=== PATIENT | male | born 1975 | race Caucasian/White ===

== ENCOUNTER → 2017-05-09 | Outpatient (CLI) | payer BC, OTHER | END | disposition home or self-care (01) | LOC: C.RDSM 10:54 | PROVIDERS: ATTEND Physical Medicine & Rehabilitation Sports Medicine | DX: M25.511 Pain in right shoulder (principal) ==

== ENCOUNTER 2024-10-03 15:28 | Inpatient (IN) ==
[2024-10-03 16:09] LABS: Hematocrit (blood only) 41.8 % (42.0-52.0); Hemoglobin 15.4 g/dl (14.0-18.0); Immature Granulocytes # (auto) 0.02 K/uL (0.01-0.20); Immature Granulocytes % (auto) 0.6 %; Lymphocytes # (auto) 0.59 K/uL (1.20-3.40); Lymphocytes % (auto) 16.3 %; Mean Corpuscular Hemoglobin 31.6 pg (25.0-34.0); Mean Corpuscular Hgb Conc 36.8 g/dL (32.0-36.0); Mean Corpuscular Volume 85.7 fL (80.0-100.0); Mean Platelet Volume 8.9 fL (9.4-12.4); Monocytes # (auto) 0.13 K/uL (0.11-0.59); Monocytes % (auto) 3.6 %; Neutrophils # (auto) 2.89 K/uL (1.40-6.50); Neutrophils % (auto) 79.5 %; Platelet Count 156 K/uL (130-400); RDW Coefficient of Variation 12.1 % (11.5-14.5); RDW Standard Deviation 38.3 fL (36.4-46.3); Red Blood Count 4.88 M/uL (4.70-6.10); White Blood Count 3.63 K/ul (4.8-10.8)
[2024-10-03 16:27] LABS: Anion Gap 5 (3-11); Blood Urea Nitrogen 14 mg/dl (6-23); Carbon Dioxide 26 mmol/L (21-32); Chloride 93 mmol/L (98-107); Creatinine Clr Calc Pharmacy 93.5 ml/min; Potassium 3.8 mmol/L (3.5-5.1); Sodium 124 mmol/L (136-145)
[2024-10-03 16:32] LABS: Troponin I High Sensitivity 9.8 pg/ml (0-20)
--- NOTE | 2024-10-03 16:33 | XRay Report ---
Chest radiograph, one view History: Tachycardia Comparison: October 01, 2024 Findings impression: Single AP view of the chest performed. An area of consolidation throughout the left lower lobe has increased in size. The right lung remains clear. Normal cardiomediastinal silhouette. No pneumothorax. No obvious or large pleural effusion. Electronically signed by Jose Luis Baires 10-03-2024 4:33 PM
[2024-10-03 16:38] LABS: Partial Thromboplastin Ratio 1.3; Partial Thromboplastin Time 36 Seconds (21-31); Prothrombin Time 10.6 Seconds (9.0-12.0)
[2024-10-03] MEDS ORDERED: VANCOMYCIN CONSULT ACTIVE PRN (17:06)
--- NOTE | 2024-10-03 17:10 | Emergency Department Note ---
Impression & Plan Sepsis, LLL pneumonia, Acute hyponatremia ED Provider Note NAME: WADE JONES AGE: 49 SEX: M : 1975 ARRIVES VIA: Walk-In INFORMANT: Patient ED PROVIDER(S): Wale Reagan DO CHIEF COMPLAINT: Pneumonia HPI: Patient is a 49-year-old male with no significant past medical history that presents to the ER for symptoms of not feeling well on Friday night. On Friday he started having fevers that have been persistent since then. He felt very tired and had a cough and congestion which then started after Friday. He was seen evaluated and placed on doxycycline and then switched to Augmentin and azithromycin on the at urgent care. Patient notes that sometimes he will vomit but he believes his medications are upsetting his stomach. Denies any belly pain. No pain dysuria, urgency, or frequency. Denies any tick bites. ADDITIONAL HISTORY OBTAINED: Per HPI Chronic Medical/Social Conditions Affecting Care: Per HPI PAST MEDICAL HISTORY:See Below PAST SURGICAL HISTORY:See Below FAMILY HISTORY:See Below SOCIAL HISTORY:See Below HOME MEDICATIONS:See Below ALLERGIES:See Below VITALS:See Below PHYSICAL EXAMINATION: GENERAL: Sitting up in bed, alert, well appearing, well nourished, no distress, non-toxic EYE EXAM: normal conjunctiva. OROPHARYNX: no exudate, no erythema, lips, buccal mucosa, and tongue normal and mucous membranes are moist NECK: supple, no nuchal rigidity, no adenopathy, non-tender LUNGS: Clear to auscultation. Normal chest wall mechanics HEART: no murmurs, S1 normal and S2 normal ABDOMEN: abdomen soft, non-tender, normo-active bowel sounds, no masses, no rebound or guarding. BACK: Back is symmetrical on inspection and there is no deformity, no midline tenderness, no CVA tenderness. SKIN: no rashes and no bruising UPPER EXTREMITIES: upper extremities are grossly normal. LOWER EXTREMITIES: No pitting edema. NEURO EXAM: Normal sensorium, cranial nerves II-XII grossly intact, normal speech, no gross weakness of arms, no gross weakness of legs. MEDICAL DECISION MAKING: Patient is a 49-year-old male recently diagnosed with pneumonia on antibiotics and CAP who presents ER for persistent fevers. IV was established and blood work was obtained. Labs show leukopenia at 3.6 thousand. INR was unremarkable. BMP with hyponatremia at 124. LFTs and bilirubin were unremarkable. Pro-Asael at 0.95. Lyme was negative. Anaplasmosis was negative. With the hyponatremia question if this could be legionnaires. Patient was covered with IV cefepime and IV vancomycin. For legionnaires he would need atypical coverage but had been on Doxy and then recently switched to azithromycin and took a dose today. Patient was given IV fluids. Updated bedside. Discussed with the hospitalist for further evaluation management treatment. Chest x-ray confirms worsening pneumonia. Consults/Care Managements Discussions: Per [facility] Triage Nursing notes reviewed. Limited review of prior medical records performed Vital Signs: reviewed and remarkable for febrile Differential diagnosis: Differential diagnosis includes etiologies such as sepsis, UTI, pneumonia, metabolic, electrolyte abnormalities, cardiac sources, intracerebral event, toxicologic, neurological, as well as others were entertained. ER treatment provided: See below Diagnostics interpreted by me include EKG and cardiac monitoring as listed below: -Cardiac Monitoring: An order was placed for continuous cardiac monitoring. The monitor shows a rate of 80 with sinus rhythm. -ECG: Sinus rhythm with rate 96 Normal axis No PVCs Nonspecific ST wave changes in the lateral leads -Laboratory studies:Interpreted by me as stated above in MDM and shown below. Imaging studies: Xrays: As interpreted by me: Portable AP upright 1 view chest shows worsening pneumonia in the left lower lobe CTs show: None Procedures:none Critical Care: None Past Med/Surg History Problem List (Updated 10/03/24 @ 21:58 by Wale Reagan DO) Acute hyponatremia (Acute) LLL pneumonia (Acute) Sepsis (Acute) Medical History (Updated 10/03/24 @ 21:58 by Wale Reagan DO) JOSEPHINE on CPAP Varicocele Surgical History S/P wisdom tooth extraction Family History Grandmother Diabetes Father Hypertension Family/Other Esophageal cancer Social History (Updated 10/03/24 @ 17:50 by Dorita Light PA-C) Smoking Status: Never smoker Second Hand Exposure: No; Do You Dip or Chew Tobacco: No; Tobacco Cessation Education Requested by Patient: No Hx Alcohol Use: Yes Alcohol type: beer Hx Substance Use: No Preferred Language: Vietnamese Communication Ability: Effective Therapy Teacher Required: No Beliefs That Will Affect Care: None marital status: Current Living Situation: Family current occupational status: employed 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 Other Information That Helps Us Care for You: No Feels Safe at Home: Yes Safety Concerns: Feels Safe At This Time Assistive Devices: None Allergies Allergies Allergy/AdvReac Type Severity Reaction Status Date / Time No Known Allergies Allergy Verified 09/30/24 08:17 Home Meds Home Medications Medication Instructions Recorded Confirmed loratadine 10 mg tablet 10 mg PO DAILY PRN Allergy Symptoms 10/03/24 10/03/24 multivitamin 1 tab PO QAM 10/03/24 10/03/24 Previous Rx's Medication Instructions Recorded amoxicillin 875 mg-potassium 1 tab PO BID 7 days #14 tabs 10/01/24 clavulanate 125 mg tablet azithromycin 250 mg tablet See Rx Instructions PO .COMPLEX 5 10/01/24 days #6 tabs Results & Data (ED) Vital Signs Vital Signs - 24 hr 10/03/24 15:33 10/03/24 16:38 10/03/24 16:38 Temperature 38.3 C H 38.3 C H Temperature Source Oral Oral Pulse Rate 108 H 86 Pulse Rate [Apical] 86 Pulse Rate from SpO2 Sensor Respiratory Rate 20 16 Respiratory Effort / Characteristics Non-Labored Spontaneous Respiratory Depth Shallow Respiratory Pattern Regular Blood Pressure 116/66 Blood Pressure [Right Arm] 116/78 Blood Pressure Mean 82 Blood Pressure Mean [Right Arm] 90 Pulse Oximetry 92 93 Oxygen Delivery Method Room Air Room Air Sepsis New/Unexplained Change in Mental Status No Sepsis Action Taken by Nursing Physician Notified 10/03/24 17:24 Temperature Temperature Source Pulse Rate 81 Pulse Rate [Apical] Pulse Rate from SpO2 Sensor 82 Respiratory Rate 19 Respiratory Effort / Characteristics Respiratory Depth Respiratory Pattern Blood Pressure 165/102 H Blood Pressure [Right Arm] Blood Pressure Mean 123 Blood Pressure Mean [Right Arm] Pulse Oximetry 93 Oxygen Delivery Method Sepsis New/Unexplained Change in Mental Status Sepsis Action Taken by Nursing Laboratory Data 10/03/24 15:53 10/03/24 15:53 Lab Results 10/03/24 10/03/24 10/03/24 Range/Units 15:53 17:15 17:21 WBC 3.63 L (4.8-10.8) K/ul RBC 4.88 (4.70-6.10) M/uL Hgb 15.4 (14.0-18.0) g/dl Hct 41.8 L (42.0-52.0) % MCV 85.7 (80.0-100.0) fL MCH 31.6 (25.0-34.0) pg MCHC 36.8 H (32.0-36.0) g/dL RDW Std Deviation 38.3 (36.4-46.3) fL RDW Coeff of Bradley 12.1 (11.5-14.5) % Plt Count 156 (130-400) K/uL MPV 8.9 L (9.4-12.4) fL Immature Gran % (Auto) 0.6 % Neut % (Auto) 79.5 % Lymph % (Auto) 16.3 % Quay % (Auto) 3.6 % Eos % (Auto) 0.0 % Baso % (Auto) 0.0 % Neut # (Auto) 2.89 (1.40-6.50) K/uL Lymph # (Auto) 0.59 L (1.20-3.40) K/uL Quay # (Auto) 0.13 (0.11-0.59) K/uL Eos # (Auto) 0.00 (0.00-0.50) K/uL Baso # (Auto) 0.00 (0.00-0.20) K/uL Immature Gran # (Auto) 0.02 (0.01-0.20) K/uL PT 10.6 (9.0-12.0) Seconds INR 1.0 (0.9-1.1) APTT 36 H (21-31) Seconds PTT Ratio 1.3 Sodium 124 L (136-145) mmol/L Potassium 3.8 (3.5-5.1) mmol/L Chloride 93 L (98-107) mmol/L Carbon Dioxide 26 (21-32) mmol/L Anion Gap 5 (3-11) BUN 14 (6-23) mg/dl Creatinine 1.06 (0.6-1.4) mg/dl Est Cr Clr Drug Dosing 93.5 ml/min eGFR Not Reportable BUN/Creatinine Ratio 13.2 (10-20) Glucose 126 H (70-99(Fasting)) mg/dl Osmolality 262 L (280-300) mOsm/kg Lactate 1.0 (0.4-2.0) mmol/L Calcium 8.5 L (8.6-10.3) mg/dl Total Bilirubin 0.5 (0.2-1.0) mg/dl AST 83 H (13-39) U/L ALT 45 (7-52) U/L Alkaline Phosphatase 47 (34-104) U/L Troponin I High Sens 9.8 (0-20) pg/ml Total Protein 7.1 (6.0-8.3) gm/dl Albumin 3.8 (3.4-5.0) gm/dl Globulin 3.3 (2.5-4.0) gm/dl Albumin/Globulin Ratio 1.2 (0.9-2) Procalcitonin 0.95 H (0-0.5) ng/ml Urine Osmolality 879 H (500-800) mOsm/kg Ur Random Sodium 17 mmol/L Anaplasma Smear See Comment Lyme Disease Screen Negative (Negative) Administered Medications Guaifenesin (Guaifenesin 600 Mg Tabcr) 1,200 mg PO Q12 [facility] Stop: 11/02/24 20:59 Last Admin: 10/03/24 21:12 Dose: 1,200 mg Documented By: MICHELINE Discontinued Medications Acetaminophen (Acetaminophen 325 Mg Tab) 650 mg PO NOW STA Stop: 10/03/24 17:09 Last Admin: 10/03/24 17:30 Dose: 650 mg Documented By: BELÉN Cefepime HCl (Maxipime 2000mg) 2,000 mg in 20 mls @ 5 mls/min IV NOW STA; Protocol Stop: 10/03/24 17:09 Last Admin: 10/03/24 17:30 Dose: 5 mls/min Documented By: BELÉN Vancomycin HCl 2,250 mg/ (Sodium Chloride) 545 mls @ 200 mls/hr IV NOW ONE Stop: 10/03/24 19:49 Last Infusion: 10/03/24 21:16 Dose: Infused Documented By: Admin: 10/03/24 18:14 Dose: 200 mls/hr Documented By: CARI Sodium Chloride (Nss) 1,000 mls @ 999 mls/hr IV .Q1H1M JOSE DE JESUS Stop: 10/03/24 19:15 Last Infusion: 10/03/24 19:56 Dose: Infused Documented By: Admin: 10/03/24 18:18 Dose: 999 mls/hr Documented By: Infusion: 10/03/24 18:18 Dose: Infused Documented By: Admin: 10/03/24 17:30 Dose: 999 mls/hr Documented By: BELÉN Imaging Data Radiologist's Impression: Chest X-Ray 10/03/24 15:44 Chest radiograph, one view History: Tachycardia Comparison: October 01, 2024 Findings impression: Single AP view of the chest performed. An area of consolidation throughout the left lower lobe has increased in size. The right lung remains clear. Normal cardiomediastinal silhouette. No pneumothorax. No obvious or large pleural effusion. Electronically signed by Jose Luis Baires 10-03-2024 4:33 PM Discharge Plan Visit Data Chief Complaint: Flu Like Symptoms Stated Complaint: HIGH FEVER, NAUSEA, HEADACHE ED Provider: Wale Reagan Discharge Problem: Sepsis, LLL pneumonia, Acute hyponatremia Patient Disposition: Admitted As Inpatient Condition: Fair Discharge Instructions Interventions: ED Discharge Assessment Last Done: 10/03/24 19:54 Discharge Problem: Sepsis Qualifiers: Sepsis type: sepsis due to unspecified organism Sepsis acute organ dysfunction status: unspecified Qualified Code(s): A41.9 - Sepsis, unspecified organism LLL pneumonia Qualifiers: Pneumonia type: due to unspecified organism Qualified Code(s): J18.9 - Pneumonia, unspecified organism
[2024-10-03] MEDS: SODIUM CHLORIDE 0.9% 1,000 ML IV SCH (17:30)
[2024-10-03] MEDS: CEFEPIME 2000MG 2,000 MG/20 ML SYR IV STA (17:30)
[2024-10-03] MEDS: ACETAMINOPHEN 325 MG TAB PO STA (17:30)
--- NOTE | 2024-10-03 17:52 | History & Physical Report ---
Date of Service October 03, 2024 Assessment & Plan (1) LLL pneumonia: (2) Sepsis: (3) Acute hyponatremia: (4) JOSEPHINE on CPAP: Plan This is a 49 y/o male with no significant medical history who presents to the ED with worsening symptoms of pneumonia and persistent fever. Pt was seen at urgent care for these symptoms and diagnosed with pneumonia, started on Augmentin/azithromycin on 09/30. However, he continues to have high fevers and persistent productive cough so came to the ED for evaluation. On presentation to to the ED, pt met sepsis criteria with tachycardia, persistent fever and labs showing leukopenia. Chest x-ray personally reviewed from today and compared to 10/01 x-ray - showed worsening of LLL consolidation. Pt was referred for admission for IV antibiotics, further evaluation. Initial lactate was normal. Noted to have new marked hyponatremia with sodium 124. Pt received 2L of IVF in the ED with improvement in tachycardia, BP remains stable. #LLL pneumonia #Sepsis secondary to pneumonia - Admit to med telemetry - Broaden antibiotic coverage for now - continue cefepime, vanco while work-up pending then deescalate as able - Legionella Ag (pt works as [employer]) - will continue empiric azithromycin for atypical coverage for now - Blood cultures pending - Check sputum culture, procal - Labs in AM - Scheduled guaifenesin, prn Tessalon perles for cough #Acute hyponatremia - suspect related to increased fluids with poor appetite/not eating for last several days but will evaluate for alternate etiologies - Encourage oral intake - hold additional IVF for now - Serum osmo, urine osmo, urine sodium - Trend labs - repeat BMP tonight and in AM #JOSEPHINE - CPAP per protocol ordered Pt seen and reviewed with collaborating physician, Dr. Whitmore. Plan of care discussed and as outlined above. Code status: full code DVT prophylaxis: Lovenoodalys Light PA-C History of Present Illness Chief Complaint: worsening pneumonia symptoms Primary Care Provider: Annetta Steiner DO This is a 49 y/o male with no significant medical history who presents to the ED with worsening symptoms of pneumonia and persistent fever. He reports that symptoms started six days ago on Friday night when he felt exhausted so went to bed early. On Friday, he went to work but felt off though no specific symptoms at the time, took temp that night which was 103F. He went to bed early that night and slept until 11 am next day. On Friday, he tried to push fluids and rest but still felt poorly. On , he started having chest burning and continued with fevers so he was seen in urgent care and tested for flu and strep which were negative. He reports being told that he may have Lyme disease so started on doxycycline, was ordered a chest x-ray. On Friday, he had the chest x-ray and was diagnosed with pneumonia. The doxycycline was discontinued, he started on azithromycin and ceftriaxone, which he reports he has been taking. Since starting the antibiotics, he feels like the chest congestion has loosened somewhat and he now has a cough that is intermittently productive. However, still with persistent fevers, malaise, intermittent SAMANIEGO. Cough is now constant and he is not sleeping due to symptoms. Denies significant dyspnea, runny nose. +sore throat from coughing, minimal sinus congestion. Has had some nausea and diarrhea since starting the antibiotics. Appetite is decreased, hasn't eaten much but trying to push fluids. History of JOSEPHINE for which he uses CPAP. Allergies Allergy/AdvReac Type Severity Reaction Status Date / Time No Known Allergies Allergy Verified 09/30/24 08:17 Home Medications Medication Instructions Recorded Confirmed Type amoxicillin 875 mg-potassium 1 tab PO BID 7 days #14 tabs 10/01/24 10/03/24 Rx clavulanate 125 mg tablet azithromycin 250 mg tablet See Rx Instructions PO .COMPLEX 5 10/01/24 10/03/24 Rx days #6 tabs loratadine 10 mg tablet 10 mg PO DAILY PRN Allergy Symptoms 10/03/24 10/03/24 History multivitamin 1 tab PO QAM 10/03/24 10/03/24 History Past Med/Surg History Problem List (Updated 10/03/24 @ 18:34 by Dorita Light PA-C) Acute hyponatremia LLL pneumonia Sepsis Medical History (Updated 10/03/24 @ 18:34 by Dorita Light PA-C) JOSEPHINE on CPAP Varicocele Surgical History S/P wisdom tooth extraction Family History Grandmother Diabetes Father Hypertension Family/Other Esophageal cancer Social History (Updated 10/03/24 @ 17:50 by Dorita Light PA-C) Smoking Status: Former smoker Hx Alcohol Use: Yes marital status: current occupational status: employed 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 Feels Safe at Home: Yes Assistive Devices: CPAP Review of Systems Review of Systems: All systems reviewed & are unremarkable except as noted in Subjective Physical Exam Physical Exam: Please physician note for details of the physical exam Results & Data Results & Data Vital Signs (Past 12 Hours) Vital Signs Temp Pulse Pulse Resp BP BP Pulse Ox 10/03/24 16:38 38.3 C H 86 16 116/78 93 10/03/24 16:38 86 10/03/24 15:33 38.3 C H 108 H 20 116/66 92 O2 Del Method 10/03/24 16:38 Room Air 10/03/24 16:38 10/03/24 15:33 Room Air Laboratory Results Lab Results 10/03/24 10/03/24 Range/Units 15:53 17:21 WBC 3.63 L (4.8-10.8) K/ul RBC 4.88 (4.70-6.10) M/uL Hgb 15.4 (14.0-18.0) g/dl Hct 41.8 L (42.0-52.0) % MCV 85.7 (80.0-100.0) fL MCH 31.6 (25.0-34.0) pg MCHC 36.8 H (32.0-36.0) g/dL RDW Std Deviation 38.3 (36.4-46.3) fL RDW Coeff of Bradley 12.1 (11.5-14.5) % Plt Count 156 (130-400) K/uL MPV 8.9 L (9.4-12.4) fL Immature Gran % (Auto) 0.6 % Neut % (Auto) 79.5 % Lymph % (Auto) 16.3 % Meigs % (Auto) 3.6 % Eos % (Auto) 0.0 % Baso % (Auto) 0.0 % Neut # (Auto) 2.89 (1.40-6.50) K/uL Lymph # (Auto) 0.59 L (1.20-3.40) K/uL Meigs # (Auto) 0.13 (0.11-0.59) K/uL Eos # (Auto) 0.00 (0.00-0.50) K/uL Baso # (Auto) 0.00 (0.00-0.20) K/uL Immature Gran # (Auto) 0.02 (0.01-0.20) K/uL PT 10.6 (9.0-12.0) Seconds INR 1.0 (0.9-1.1) APTT 36 H (21-31) Seconds PTT Ratio 1.3 Sodium 124 L (136-145) mmol/L Potassium 3.8 (3.5-5.1) mmol/L Chloride 93 L (98-107) mmol/L Carbon Dioxide 26 (21-32) mmol/L Anion Gap 5 (3-11) BUN 14 (6-23) mg/dl Creatinine 1.06 (0.6-1.4) mg/dl Est Cr Clr Drug Dosing 93.5 ml/min Lactate 1.0 (0.4-2.0) mmol/L Troponin I High Sens 9.8 (0-20) pg/ml Lyme Disease Screen Negative (Negative) Diagnostic Findings Chest X-Ray 10/03/24 15:44 Chest radiograph, one view History: Tachycardia Comparison: October 01, 2024 Findings impression: Single AP view of the chest performed. An area of consolidation throughout the left lower lobe has increased in size. The right lung remains clear. Normal cardiomediastinal silhouette. No pneumothorax. No obvious or large pleural effusion. Electronically signed by Jose Luis Baires 10-03-2024 4:33 PM Medications Administered Sodium Chloride (Nss) 1,000 mls @ 999 mls/hr IV .Q1H1M JOSE DE JESUS Stop: 10/03/24 19:15 Last Admin: 10/03/24 17:30 Dose: 999 mls/hr Documented By: BELÉN Discontinued Medications Acetaminophen (Acetaminophen 325 Mg Tab) 650 mg PO NOW STA Stop: 10/03/24 17:09 Last Admin: 10/03/24 17:30 Dose: 650 mg Documented By: BELÉN Cefepime HCl (Maxipime 2000mg) 2,000 mg in 20 mls @ 5 mls/min IV NOW STA; Protocol Stop: 10/03/24 17:09 Last Admin: 10/03/24 17:30 Dose: 5 mls/min Documented By: BELÉN Supervising Physician Co-Signing Physician Notes Presents with feeling ill since 6 days ago and fever for the past 5 days. 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 On exam, General: Not in distress Eyes: PERRL, conjunctivae normal, not pale, anicteric sclerae, EOM intact bilaterally ENMT: External ear and nose normal, oropharynx normal Respiratory: Normal respiratory effort, no respiratory distress, +cough, CTA b/l Cardiovascular: RRR S1 S2 Gastrointestinal (Abdomen): Abdomen is not distended, soft, non-tender to palpation, no guarding, no palpable hepatosplenomegaly, normal bowel sounds Musculoskeletal: No pedal edema Neurologic: Alert and oriented x 3, No focal weakness, sensation grossly intact Psychiatric: Euthymic affect Labs notable for WBC 3.63, Na 124 CXR noted left lower lobe pneumonia Met SIRS criteria with leukopenia and fever of 38.3 in ER Hence Sepsis due to Pneumonia Lactate is normal Get Procal Considering persistent symptoms while on antibiotics outpatient, will continue vanc and cefepime for now Add zithromax for atypical coverage Check legionella and sputum cx Check COVID test. Recent flu and strep from 09/30/24 were negative Follow up infectious workup and deescalate as appropriate Other plans as detailed by Nubia Light PA-C I spent a total of 35 minutes coordinating, documenting and providing care for this patient excluding time spent in performance of separately billed services (1) LLL pneumonia Pneumonia type: due to unspecified organism Qualified Code(s): J18.9 - Pneumonia, unspecified organism (2) Sepsis Sepsis acute organ dysfunction status: without acute organ dysfunction Sepsis type: sepsis due to unspecified organism Qualified Code(s): A41.9 - Sepsis, unspecified organism
[2024-10-03] MEDS: VANCOMYCIN HCL 2,250 MG in SODIUM CHLORIDE 0.9% 500 ML IV ONE (18:14)
[2024-10-03 19:20] LABS: Alanine Aminotransferase 45 U/L (7-52); Albumin Globulin Ratio 1.2 (0.9-2); Albumin Level 3.8 gm/dl (3.4-5.0); Alkaline Phosphatase 47 U/L (34-104); Aspartate Aminotransferase 83 U/L (13-39); BUN Creatinine Ratio 13.2 (10-20); Bilirubin,Total 0.5 mg/dl (0.2-1.0); Calcium 8.5 mg/dl (8.6-10.3); Globulin 3.3 gm/dl (2.5-4.0); Glucose 126 mg/dl (70-99(Fasting)); Total Protein 7.1 gm/dl (6.0-8.3)
[2024-10-03] MEDS ORDERED: ONDANSETRON INJ 2 MG/ML 2 ML VIAL IV PRN (20:58)
[2024-10-03] MEDS: guaiFENesin 600 MG TABCR PO SCH (21:12)
[2024-10-03 23:13] LABS: BUN Creatinine Ratio 13.8 (10-20); Calcium 7.5 mg/dl (8.6-10.3); Potassium 3.7 mmol/L (3.5-5.1)
[2024-10-04] MEDS: CEFEPIME 2000MG 2,000 MG/20 ML SYR IV SCH (00:32)
[2024-10-04] MEDS: BENZONATATE 100 MG CAPSULE PO PRN (00:34)
[2024-10-04] MEDS: HYDROcodone/HOMATROPINE SYRUP 5MG/1.5MG 5ML UDP PO PRN (01:20)
[2024-10-04] MEDS: ACETAMINOPHEN 325 MG TAB PO PRN (02:58)
[2024-10-04] MEDS: KETOROLAC TROMETHAMINE 15 MG/ML VIAL IV ONE (04:19)
[2024-10-04] MEDS: VANCOMYCIN HCL 1,250 MG in SODIUM CHLORIDE 0.9% 250 ML IV SCH (05:35)
[2024-10-04 06:28] LABS: Hematocrit (blood only) 36.7 % (42.0-52.0); Hemoglobin 13.3 g/dl (14.0-18.0); Mean Corpuscular Hemoglobin 31.4 pg (25.0-34.0); Mean Corpuscular Hgb Conc 36.2 g/dL (32.0-36.0); Mean Corpuscular Volume 86.6 fL (80.0-100.0); Mean Platelet Volume 8.8 fL (9.4-12.4); Platelet Count 152 K/uL (130-400); RDW Coefficient of Variation 12.3 % (11.5-14.5); RDW Standard Deviation 39.1 fL (36.4-46.3); Red Blood Count 4.24 M/uL (4.70-6.10)
[2024-10-04 06:52] LABS: Calcium 7.7 mg/dl (8.6-10.3); Creatinine Clr Calc Pharmacy 122.4 ml/min; Potassium 3.5 mmol/L (3.5-5.1)
[2024-10-04 07:21] LABS: Immature Granulocytes # (auto) 0.01 K/uL (0.01-0.20); Immature Granulocytes % (auto) 0.3 %; Lymphocytes # (auto) 0.92 K/uL (1.20-3.40); Lymphocytes % (auto) 26.3 %; Monocytes # (auto) 0.16 K/uL (0.11-0.59); Monocytes % (auto) 4.6 %; Neutrophils # (auto) 2.41 K/uL (1.40-6.50); Neutrophils % (auto) 68.8 %
[2024-10-04] MEDS: SODIUM CHLORIDE 0.9% 500 ML IV ONE (07:47)
[2024-10-04] MEDS: AZITHROMYCIN 500 MG/255 ML BAG IV SCH (07:48)
[2024-10-04] MEDS: ENOXAPARIN INJ 40 MG/0.4 ML SYR SQ SCH (07:49)
[2024-10-04] MEDS: SODIUM CHLORIDE 0.9% 1,000 ML IV SCH (07:54)
[2024-10-04] MEDS: OPTIRAY 320 100ml IV ONE (09:06)
--- NOTE | 2024-10-04 10:12 | CT Scan Report ---
CHEST CT WITH CONTRAST CT DOSE: 788. mGy.cm HISTORY: Acute shortness of breath r/o empyema, refractory pneumonia TECHNIQUE: Multiaxial CT images of the chest were performed following the IV administration of 94 cc of Optiray. A dose lowering technique was utilized adhering to the principles of ALARA. COMPARISON: Chest radiograph 10/03/2024 FINDINGS: Unremarkable thyroid. 11 mm left hilar lymph node. Mild subcarinal lymphadenopathy. Heart i s upper limits of normal in size. No thoracic aortic aneurysm. Unremarkable pulmonary artery. Trace r ight and small to moderate left pleural effusions. The left pleural effusion is multiloculated. No si gnificant left-sided pleural thickening is identified. There is segmental consolidative opacities not ed throughout the majority of the left lower lobe with air bronchograms and left basilar mucous plugg ing. Mild dependent subsegmental right basilar atelectasis. Central airways appear patent. Nonspecific asymmetric left-sided perinephric stranding. Unremarkable soft tissues. No acute fracture . IMPRESSION: 1. Severe left lower lobe pneumonia with left basilar mucous plugging. 2. [id number] multiloculated left parapneumonic effusion. No definite associated pleural thick ening or discrete empyema identified at this time. 3. Likely reactive hilar and mediastinal lymphadenopathy. 4. Trace right pleural effusion. ACT 112: Negative or not required by law. Electronically signed by: Allen Noguera M.D. 10/04/2024 10:11 AM
[2024-10-04] MEDS: cefTRIAXone SODIUM 2,000 MG/50 ML BAG IV SCH (10:53)
--- NOTE | 2024-10-04 11:02 | Hospitalist Progress Note ---
Date of Service October 04, 2024 Assessment & Plan (1) LLL pneumonia: (2) Sepsis: (3) Acute hyponatremia: (4) JOSEPHINE on CPAP: Plan This is a 49 y/o male with no significant medical history who presents to the ED with worsening symptoms of pneumonia and persistent fever. Pt was seen at urgent care for these symptoms and diagnosed with pneumonia, started on Augmentin/azithromycin on 09/30. However, he continues to have high fevers and persistent productive cough so came to the ED for evaluation. On presentation to to the ED, pt met sepsis criteria with tachycardia, persistent fever and labs showing leukopenia. Chest x-ray personally reviewed from today and compared to 10/01 x-ray - showed worsening of LLL consolidation. Pt was referred for admission for IV antibiotics, further evaluation. Initial lactate was normal. Noted to have new marked hyponatremia with sodium 124. Pt received 2L of IVF in the ED with improvement in tachycardia, BP remains stable. #LLL CAP #Multiloculated Parapneumonic Effusion #Sepsis secondary to pneumonia - Admit to med telemetry - no pseudomonas/MRSA risk factors, descalate to ceftriaxone/azithromycin - CT chest ordered and personally reviewed by this provider shows mild to moderate multiloculated effusion, likely reason for lack of improvement - pulmonary consulted for consideration of thoracentesis and pigtail placement if indicated, appreciate recs - Legionella Ag (pt works as [employer]) - will continue empiric azithromycin for atypical coverage for now - f/ blood cultures, sputum culture - Scheduled guaifenesin, prn Tessalon perles for cough - start incentive spirometer, flutter valve for aggressive bronchopulmonary hygiene #Hypovolemic Hypoosmolar Hyponatremia - Encourage oral intake - give 500cc NS bolus, maintenance with NS for 12 hours #JOSEPHINE - CPAP per protocol ordered I spent a total of 55 minutes in direct patient care, including [id number] time with the patient and/or family, reviewing medical records, ordering and reviewing diagnostic tests, and coordinating care with other healthcare providers. This time includes: history taking, physical examination, medical decision making, counseling, ECG interpretation, imaging interpretation, lab interpretation, orders, and education, excluding time spent in the performance of separately billed services. Admission and Anticipated Discharge Date Admission Date: October 03, 2024 Subjective Patient seen and examined at bedside. Patient doing ok this morning. He states he was still having fevers at home and thats why he came in. Of note, was treated with appropriate abx therapy for 3 days before coming to hospital. Having chills at home as well. Never had this happen to him before. Review of Systems Review of Systems: CONSTITUTIONAL: fatigue EYES: Patient denies any visual symptoms. EARS, NOSE, AND THROAT: No difficulties with hearing. No symptoms of rhinitis or sore throat. CARDIOVASCULAR: Patient denies chest pains, palpitations, orthopnea and paroxysmal nocturnal dyspnea. RESPIRATORY: SOB, cough GI: No nausea, vomiting, diarrhea, constipation, abdominal pain, hematochezia or melena. : No urinary hesitancy or dribbling. No nocturia or urinary frequency. No abnormal urethral discharge. MUSCULOSKELETAL: No myalgias or arthralgias. NEUROLOGIC: No chronic headaches, no seizures. Patient denies numbness, tingling or weakness. PSYCHIATRIC: Patient denies problems with mood disturbance. No problems with anxiety. ENDOCRINE: No excessive urination or excessive thirst. DERMATOLOGIC: Patient denies any rashes or skin changes. Physical Exam Physical Exam: Gen: A&O 3 NAD HEENT: NCAT, EOMI, not icteric. External ears normal. No rhinorrhea. Moist mucous membranes. Neck: Supple, full range of motion, no observable masses, No meningeal sign. Lungs: left lower lobe rhonchi noted CV: RRR, no edema. Abdomen: Soft, nondistended, No rebound tenderness. MSK: No joint swelling, no redness. Skin: No rashes, petechiae, lesions. Normal color per patient. Neuro: Normal Gait, Grossly intact. Psych: Appropriate for situation. Results & Data Results & Data Vital Signs (Past 12 Hours) Vital Signs Temp Pulse Pulse Pulse Resp BP Pulse Ox 10/04/24 08:16 10/04/24 07:39 63 10/04/24 07:20 36.9 C 72 18 112/75 90 10/04/24 05:40 37.1 C 10/04/24 03:56 38.5 C H 10/04/24 02:48 38.8 C H 83 18 116/76 91 O2 Del Method 10/04/24 08:16 Room Air 10/04/24 07:39 10/04/24 07:20 Room Air 10/04/24 05:40 10/04/24 03:56 05/12/25 02:48 Room Air Laboratory Results -personally reviewed, Na 126 in setting of low serum osmoles 2/2 dehydration, procal of 0.95 suggestive of bacterial infection and sepsis Medications Administered Acetaminophen (Acetaminophen 325 Mg Tab) 650 mg PO Q4H PRN PRN Reason: Pain or Fever Stop: 11/02/24 20:57 Last Admin: 10/04/24 02:58 Dose: 650 mg Documented By: MICHELINE Benzonatate (Benzonatate 100 Mg Capsule) 100 mg PO TID PRN PRN Reason: Cough Stop: 11/02/24 20:57 Last Admin: 10/04/24 00:34 Dose: 100 mg Documented By: MICHELINE Enoxaparin Sodium (Enoxaparin Inj 40 Mg/0.4 Ml Syr) 40 mg SQ QAM [facility] Stop: 11/03/24 08:59 Last Admin: 10/04/24 07:49 Dose: 40 mg Documented By: JACEY Guaifenesin (Guaifenesin 600 Mg Tabcr) 1,200 mg PO Q12 [facility] Stop: 11/02/24 20:59 Last Admin: 10/04/24 07:48 Dose: 1,200 mg Documented By: Admin: 10/03/24 21:12 Dose: 1,200 mg Documented By: MICHELINE Azithromycin (Zithromax) 500 mg in 255 mls @ 127.5 mls/hr IV Q24H [facility] Stop: 10/09/24 07:59 Last Infusion: 10/04/24 09:55 Dose: Infused Documented By: Admin: 10/04/24 07:48 Dose: 127.5 mls/hr Documented By: JACEY Sodium Chloride (Nss) 1,000 mls @ 80 mls/hr IV .[id number] [facility] Stop: 10/07/24 07:44 Last Admin: 10/04/24 07:54 Dose: 80 mls/hr Documented By: JACEY Ceftriaxone Sodium (Rocephin) 2,000 mg in 50 mls @ 100 mls/hr IV Q24H [facility] Stop: 10/09/24 10:44 Last Admin: 10/04/24 10:53 Dose: 100 mls/hr Documented By: JACEY (1) LLL pneumonia Pneumonia type: due to unspecified organism Qualified Code(s): J18.9 - Pneumonia, unspecified organism (2) Sepsis Sepsis type: sepsis due to unspecified organism Sepsis acute organ dysfunction status: unspecified Qualified Code(s): A41.9 - Sepsis, unspecified organism
--- NOTE | 2024-10-04 11:21 | Pulmonary Consultation ---
Date of Consultation October 04, 2024 Assessment & Plan (1) LLL pneumonia: Pneumonia type: due to unspecified organism Qualified Code(s): J 18.9 - Pneumonia, unspecified organism (2) Cough: (3) Pleural effusion associated with pulmonary infection: Plan Community Acquired pneumonia; Cough -Continue with azithromycin day 1 of 5 day course -Continue ceftriaxone day of 5 day course. Consider switching to oral ABX if appropriate. -Chest x-ray on 10/05/2024 for evaluation of LLL consolidation. -Start Tessilon pearls and guafenesin w/ codeine PRN for cough. -Maintain SpO2 > 92%. Patient currently on room air. Left pleural effusion possible parapneumonic in setting of CAP -Continue to treat community acquired pneumonia with azithromycin and Ceftriaxone -Will hold off on diagnostic thoracentesis or chest tube placement as effusion is small to moderate and patient no exhibiting pain out of proportion to radiographic findings. -Repeat Chest x-ray on 10/05/2024. -Pulmonary to continue to follow. Supervising Physician Co-Signing Physician Notes Patient seen and examined. EMR reviewed. Images independently reviewed. The patient is awake alert and conversant. He is not on oxygen. He was febrile earlier today. Lungs with decreased breath sounds at the left lung base. CT reviewed with trivial pleural effusion identified. No clear pocket for thoracentesis or chest tube placement. Agree with antibiotics in the form of Rocephin and azithromycin. Can likely transition to oral antibiotics in the next 24 hours depending on clinical response. Will need 5 to 7 days of total therapy. Will repeat chest x-ray in a.m. to ensure the pleural effusion is not increasing in size. If so, consideration for sampling of the pleural fluid/pleural drainage may be appropriate. The above recommendations and plan were discussed with the patient as well as with his family at bedside. Questions were answered to the best my ability. They expressed understanding and are in agreement with the plan as outlined. History of Present Illness Reason for Consultation: Left parapneumonic pleural effusion in setting of community acquired pneumonia Attending Physician: Pawel Hendrix MD History of Present Illness Davi Meyer is a 49-year-old male with past medical history of obstructive sleep apnea on CPAP qhs; who presented to [facility] ED on 10/03/2024 with persistent fevers, cough, and chest tightness. Symptoms initially started with fevers, lethargy and malaise on 09/24/2024. Patient sought care at urgent care on 09/30/2024 and was started on doxycycline for persumed lyme disease with plan for a follow up chest x-ray. The patient had his chest x-ray completed on 10/01/2024 and there was a significant left lower lobe consolidation for which urgent care changed antibiotics to azithromycin and Augmentin. Unfortunately his fevers, cough, and chest tighness persisted causing him to come to [facility] ED on 10/03/2024. CT chest on 10/03/2024 which showed left lower lobe consolidation representing pneumonia with small to moderate left pleural effusion concerning for parapneumonic effusion. Pulmonary consulted on 10/04/24 for recommendations and management. Allergies Allergy/AdvReac Type Severity Reaction Status Date / Time No Known Allergies Allergy Verified 09/30/24 08:17 Home Medications Medication Instructions Recorded Confirmed Type amoxicillin 875 mg-potassium 1 tab PO BID 7 days #14 tabs 10/01/24 10/03/24 Rx clavulanate 125 mg tablet azithromycin 250 mg tablet See Rx Instructions PO .COMPLEX 5 10/01/24 10/03/24 Rx days #6 tabs loratadine 10 mg tablet 10 mg PO DAILY PRN Allergy Symptoms 10/03/24 10/03/24 History multivitamin 1 tab PO QAM 10/03/24 10/03/24 History Patient History Medical History (Updated 10/04/24 @ 12:36 by DI Ambrose) JOSEPHINE on CPAP Varicocele Surgical History S/P wisdom tooth extraction Family History Grandmother Diabetes Father Hypertension Family/Other Esophageal cancer Social History (Updated 10/03/24 @ 17:50 by Dorita Light PA-C) Smoking Status: Never smoker Second Hand Exposure: No; Do You Dip or Chew Tobacco: No; Tobacco Cessation Education Requested by Patient: No Hx Alcohol Use: Yes Alcohol type: beer Hx Substance Use: No Preferred Language: Maltese Communication Ability: Effective Transportation Associate Required: No Beliefs That Will Affect Care: None marital status: Current Living Situation: Family current occupational status: employed 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 Other Information That Helps Us Care for You: No Feels Safe at Home: Yes Safety Concerns: Feels Safe At This Time Assistive Devices: None Review of Systems 2 Review of Systems: Constitutional: + fatigue,+ malaise, endorses waking up sweating ENT/Mouth: No Ear Pain, No Nasal Congestion, No Sinus Pain, No Hoarseness, No sore throat, No Rhinorrhea, No Swallowing Cardiovascular: No Chest Pain, No SOB, No PND, No Dyspnea on Exertion, No Orthopnea, No Claudication, No Edema, No Palpitations Respiratory: + Cough worse at night, No Sputum, No Wheezing, No Smoke Exposure, No Dyspnea Gastrointestinal: + Nausea, No Vomiting, No Diarrhea, No Constipation, No Pain, No Heartburn, No Anorexia, No Dysphagia, No Hematochezia, No Melena, No Flatulence, No Jaundice Physical Exam 2 Physical Exam: VITALS: Reviewed. WEIGHT/BMI reviewed. GEN: Healthy appearing, well-developed, NAD. PSYCH: Good Judgment. AOx3. Normal memory, mood, and affect. Patient states his mind feels foggy. Mouth and throat: MMM. Normal gums, mucosa, palate,. Good dentition. NECK: Supple, with no masses. CV: RRR, no m/r/g. LUNGS: Clear in bilateral upper lobes, crackles appreciated over left lower lobe, clear right lower lobe, Chest rise symmetrical, breathing nonlabored. Sating 92% on room air. ABD: Soft, NT/ND, NBS, no masses or organomegaly. SKIN: Warm, well perfused. No skin rashes or abnormal lesions. MSK: No deformities. EXT: No clubbing, cyanosis, or edema. NEURO: Normal muscle strength and tone. No focal deficits. Results & Data Results & Data Vital Signs (Past 12 Hours) Vital Signs Temp Pulse Pulse Pulse Resp BP Pulse Ox 10/04/24 08:16 10/04/24 07:39 63 10/04/24 07:20 36.9 C 72 18 112/75 90 10/04/24 05:40 37.1 C 10/04/24 03:56 38.5 C H 10/04/24 02:48 38.8 C H 83 18 116/76 91 O2 Del Method 10/04/24 08:16 Room Air 10/04/24 07:39 10/04/24 07:20 Room Air 10/04/24 05:40 10/04/24 03:56 10/04/24 02:48 Room Air Laboratory Results 10/04/24 05:54 10/04/24 05:54 Abnormal Lab Results 10/03/24 10/03/24 10/03/24 15:53 17:15 17:21 WBC 3.63 L RBC 4.88 Hgb 15.4 Hct 41.8 L MCV 85.7 MCH 31.6 MCHC 36.8 H RDW Std Deviation 38.3 RDW Coeff of Bradley 12.1 Plt Count 156 MPV 8.9 L Immature Gran % (Auto) 0.6 Neut % (Auto) 79.5 Lymph % (Auto) 16.3 Bay % (Auto) 3.6 Eos % (Auto) 0.0 Baso % (Auto) 0.0 Neut # (Auto) 2.89 Lymph # (Auto) 0.59 L Bay # (Auto) 0.13 Eos # (Auto) 0.00 Baso # (Auto) 0.00 Immature Gran # (Auto) 0.02 PT 10.6 INR 1.0 APTT 36 H PTT Ratio 1.3 Sodium 124 L Potassium 3.8 Chloride 93 L Carbon Dioxide 26 Anion Gap 5 BUN 14 Creatinine 1.06 Est Cr Clr Drug Dosing 93.5 eGFR Not Reportable BUN/Creatinine Ratio 13.2 Glucose 126 H Osmolality 262 L Lactate 1.0 Calcium 8.5 L Total Bilirubin 0.5 AST 83 H ALT 45 Alkaline Phosphatase 47 Troponin I High Sens 9.8 Total Protein 7.1 Albumin 3.8 Globulin 3.3 Albumin/Globulin Ratio 1.2 Procalcitonin 0.95 H Urine Osmolality 879 H Ur Random Sodium 17 Nasal Screen MRSA (PCR) Anaplasma Smear See Comment Lyme Disease Screen Negative SARS-CoV-2 (PCR) 10/03/24 10/03/24 10/04/24 18:21 22:36 05:54 WBC 3.50 L RBC 4.24 L Hgb 13.3 L Hct 36.7 L MCV 86.6 MCH 31.4 MCHC 36.2 H RDW Std Deviation 39.1 RDW Coeff of Bradley 12.3 Plt Count 152 MPV 8.8 L Immature Gran % (Auto) 0.3 Neut % (Auto) 68.8 Lymph % (Auto) 26.3 Bay % (Auto) 4.6 Eos % (Auto) 0.0 Baso % (Auto) 0.0 Neut # (Auto) 2.41 Lymph # (Auto) 0.92 L Bay # (Auto) 0.16 Eos # (Auto) 0.00 Baso # (Auto) 0.00 Immature Gran # (Auto) 0.01 PT INR APTT PTT Ratio Sodium 127 L 126 L Potassium 3.7 3.5 Chloride 99 98 Carbon Dioxide 23 23 Anion Gap 5 5 BUN 12 13 Creatinine 0.87 0.81 Est Cr Clr Drug Dosing 114.0 122.4 eGFR 106.44 108.76 BUN/Creatinine Ratio 13.8 16.0 Glucose 111 H 109 H Osmolality Lactate Calcium 7.5 L 7.7 L Total Bilirubin AST ALT Alkaline Phosphatase Troponin I High Sens Total Protein Albumin Globulin Albumin/Globulin Ratio Procalcitonin Urine Osmolality Ur Random Sodium Nasal Screen MRSA (PCR) Anaplasma Smear Lyme Disease Screen SARS-CoV-2 (PCR) NEGATIVE 10/04/24 Unknown WBC RBC Hgb Hct MCV MCH MCHC RDW Std Deviation RDW Coeff of Bradley Plt Count MPV Immature Gran % (Auto) Neut % (Auto) Lymph % (Auto) Bay % (Auto) Eos % (Auto) Baso % (Auto) Neut # (Auto) Lymph # (Auto) Bay # (Auto) Eos # (Auto) Baso # (Auto) Immature Gran # (Auto) PT INR APTT PTT Ratio Sodium Potassium Chloride Carbon Dioxide Anion Gap BUN Creatinine Est Cr Clr Drug Dosing eGFR BUN/Creatinine Ratio Glucose Osmolality Lactate Calcium Total Bilirubin AST ALT Alkaline Phosphatase Troponin I High Sens Total Protein Albumin Globulin Albumin/Globulin Ratio Procalcitonin Urine Osmolality Ur Random Sodium Nasal Screen MRSA (PCR) Negative Anaplasma Smear Lyme Disease Screen SARS-CoV-2 (PCR) Diagnostic Findings Chest CT 10/04/24 07:39 IMPRESSION: 1. Severe left lower lobe pneumonia with left basilar mucous plugging. 2. [id number] multiloculated left parapneumonic effusion. No definite associated pleural thickening or discrete empyema identified at this time. 3. Likely reactive hilar and mediastinal lymphadenopathy. 4. Trace right pleural effusion. Chest X-ray 10/03/2024 @ 1544 Impression: An area of consolidation throughout the left lower lobe has increased in size. Chest X-ray 10/01/2024 @ 0812 Impression: Left lower lobe pneumonia. Follow-up to complete resolution recommended. Electronically signed by: Allen Noguera M.D. 10/04/2024 10:11 AM PG Care Time/CCT Total # of Minutes Spent Total Time Spent with Patient: Total time spent is greater than 50% in coordination of care (as documented) at patient's floor/unit and/or counseling patient: Coding Level of Care Code 27154 IN/OBS CONSULT LVL 3,45M Diagnoses Pneumonia of left lower lobe due to infectious organism J18.9 Pneumonia type: due to unspecified organism Cough R05.9 Pleural effusion associated with pulmonary infection J18.9; J91.8 Time Spent (min) 40
[2024-10-04 11:28] LABS: Total Protein 5.8 gm/dl (6.0-8.3)
[2024-10-04] MEDS ORDERED: guaiFENesin/CODEINE 100MG/10MG 5ML UDC PO PRN (12:29)
--- NOTE | 2024-10-04 12:37 | Electrocardiogram Report ---
Test Reason : Blood Pressure : */* mmHG Vent. Rate : 96 BPM Atrial Rate : 96 BPM P-R Int : 132 ms QRS Dur : 86 ms QT Int : 332 ms P-R-T Axes : 22 17 15 degrees QTcB Int : 419 ms Normal sinus rhythm Nonspecific ST and T wave abnormality Abnormal ECG No previous ECGs available Confirmed by Miguel Maloney ([id number]) on 10/04/2024 12:37:27 PM Referred By: REFERRED SELF Confirmed By: Miguel Maloney
[2024-10-04 15:00] VITALS: RESP 18
[2024-10-04] MEDS ORDERED: ACETAMINOPHEN 500 MG TAB PO PRN (16:03)
[2024-10-04] MEDS: guaiFENesin 600 MG TABCR PO SCH (20:14)
[2024-10-04] MEDS: traMADol HCL 50 MG TABLET PO PRN (20:47)
[2024-10-05 06:07] LABS: Hematocrit (blood only) 35.8 % (42.0-52.0); Mean Corpuscular Hemoglobin 31.3 pg (25.0-34.0); Mean Corpuscular Hgb Conc 36.3 g/dL (32.0-36.0); Mean Corpuscular Volume 86.1 fL (80.0-100.0); Mean Platelet Volume 9.1 fL (9.4-12.4); Platelet Count 202 K/uL (130-400); RDW Coefficient of Variation 12.3 % (11.5-14.5); RDW Standard Deviation 39.2 fL (36.4-46.3); Red Blood Count 4.16 M/uL (4.70-6.10); White Blood Count 3.64 K/ul (4.8-10.8)
[2024-10-05 06:26] LABS: BUN Creatinine Ratio 13.2 (10-20); Calcium 7.9 mg/dl (8.6-10.3); Creatinine Clr Calc Pharmacy 145.8 ml/min; Potassium 3.7 mmol/L (3.5-5.1)
[2024-10-05 06:30] LABS: Immature Granulocytes # (auto) 0.01 K/uL (0.01-0.20); Immature Granulocytes % (auto) 0.3 %; Lymphocytes # (auto) 0.89 K/uL (1.20-3.40); Lymphocytes % (auto) 24.5 %; Monocytes # (auto) 0.27 K/uL (0.11-0.59); Monocytes % (auto) 7.4 %; Neutrophils # (auto) 2.47 K/uL (1.40-6.50); Neutrophils % (auto) 67.8 %; RBC Morphology Unremarkable
--- NOTE | 2024-10-05 07:34 | XRay Report ---
EXAM: XR chest 1V portable CLINICAL HISTORY: Evaluate LLL pneumonia. TECHNIQUE: An X-ray image of the chest is obtained in AP projection. COMPARISON: 10/03/2024. FINDINGS: Pulmonary Parenchyma: Homogeneous opacification of left lower zone with blunting of the left costophrenic recess. An atelectatic band traversing in the right lower zone. Heart and Mediastinum: Heart size and shape are normal. No mediastinal widening or masses. No hilar or mediastinal lymphadenopathy. Bony Thorax: Bony thorax appears intact without fractures or deformities. Soft Tissues: Soft tissues overlying the chest wall are unremarkable. IMPRESSION: 1. Interval stable, homogeneous opacification of left lower zone with blunting of left costophrenic recess. Postinflammatory consolidative shadowing with mild pleural effusion. Clinical and lab correlation is advised. 2. Interval new, small atelectatic band traversing in the right lower zone.Comparing the previous x-ray dated 10/03/2024, interval stable left lower lobe consolidative shadowing and interval new, atelectatic bands right lower zone. Electronically signed by Codey Chavez 10-05-2024 07:34 AM
[2024-10-05] MEDS ORDERED: oxyCODONE HCL IR 5 MG TAB (IMMEDIATE RELEASE) PO PRN (07:43)
--- NOTE | 2024-10-05 07:51 | Pulmonology Progress Note ---
Date of Service October 05, 2024 Assessment & Plan (1) LLL pneumonia: Pneumonia type: due to unspecified organism Qualified Code(s): J 18.9 - Pneumonia, unspecified organism (2) JOSEPHINE on CPAP: (3) Pleural effusion associated with pulmonary infection: (4) Cough: Cough type: acute Qualified Code(s): R05.1 - Acute cough Plan Community Acquired pneumonia; Acute Cough related to LLL pneumonia. -Continue with azithromycin day 2 of 5 day course -Continue ceftriaxone day of 5-7 day course. Consider switching to oral ABX and discharging if appropriate. -Chest x-ray on 10/05/2024 stable left lower lobe consolidation. -Start Tessilon pearls and guafenesin w/ codeine PRN for cough. -Maintain SpO2 > 92%. Patient currently on room air. Left pleural effusion possible parapneumonic in setting of CAP -Continue to treat community acquired pneumonia with azithromycin and Ceftriaxone -Will hold off on diagnostic thoracentesis or chest tube placement as effusion is small on POC ultrasound -Repeat Chest x-ray on 10/05/2024 showed stable left lower lobe consolidation. -Plan for outpatient follow up on 10/07/2024 with chest x-ray to evaluate LLL effusion and patient's clinical trajectory. -Pulmonary to continue to follow. Admission and Anticipated Discharge Date Admission Date: October 03, 2024 Supervising Physician Co-Signing Physician Notes Patient seen and examined. EMR reviewed. Images were independently reviewed. Discussed with LAURA and agree with assessment plan as noted. Patient feels well. On exam he has decreased breath sounds at the left lung base. Limited thoracic ultrasound was performed at the bedside which revealed a very small fluid collection in the left hemithorax without significant effusion on the right. The fluid collection is too small to consider sampling currently. The patient is clinically improved. Okay to transition to oral antibiotics in the form of Ceftin and azithromycin and would complete antibiotics for 5 to 7 days. He can follow-up in the pulmonary clinic with a PA and lateral chest x- ray towards the end of this week to ensure that the effusion is not increasing in size. He should return to the emergency room for increasing chest pain, fevers, or shortness of breath. Disposition per primary service. I would be happy to see him back in the pulmonary clinic in follow-up later this week if needed Subjective "Doing better than yesterday." "I actually slept last night." Review of Systems 2 Review of Systems: Constitutional: + fatigue,+ malaise, endorses waking up sweating ENT/Mouth: No Ear Pain, No Nasal Congestion, No Sinus Pain, No Hoarseness, No sore throat, No Rhinorrhea, No Swallowing Cardiovascular: No Chest Pain, No SOB, No PND, No Dyspnea on Exertion, No Orthopnea, No Claudication, No Edema, No Palpitations Respiratory: + Cough present but improved from day prior, No Sputum, No Wheezing, No Smoke Exposure, No Dyspnea Gastrointestinal: + Nausea, No Vomiting, No Diarrhea, No Constipation, No Pain, No Heartburn, No Anorexia, No Dysphagia, No Hematochezia, No Melena, No Flatulence, No Jaundice Physical Exam 2 Physical Exam: VITALS: Reviewed. WEIGHT/BMI reviewed. GEN: Healthy appearing, well-developed, NAD. PSYCH: Good Judgment. AOx3. Normal memory, mood, and affect. Patient states his mind feels foggy. Mouth and throat: MMM. Normal gums, mucosa, palate,. Good dentition. NECK: Supple, with no masses. CV: RRR, no m/r/g. LUNGS: Clear in bilateral upper lobes, diminished breath sounds over left lower lobe, clear right lower lobe, Chest rise symmetrical, breathing nonlabored. Sating 92% on room air. SKIN: Warm, well perfused. No skin rashes or abnormal lesions. EXT: No clubbing, cyanosis, or edema. NEURO: Normal muscle strength and tone. No focal deficits. Results & Data Results & Data Vital Signs (Past 12 Hours) Vital Signs Temp Pulse Pulse Resp BP Pulse Ox O2 Del Method 10/05/24 07:06 60 10/05/24 02:41 37.5 C 69 18 123/78 90 Room Air 10/04/24 22:38 38.4 C H 75 18 130/76 92 Room Air 10/04/24 21:36 66 10/04/24 20:00 Room Air Laboratory Results 10/05/24 05:34 10/05/24 05:34 Diagnostic Findings Chest X-Ray 10/05/24 07:00 EXAM: XR chest 1V portable CLINICAL HISTORY: Evaluate LLL pneumonia. TECHNIQUE: An X-ray image of the chest is obtained in AP projection. COMPARISON: 10/03/2024. FINDINGS: Pulmonary Parenchyma: Homogeneous opacification of left lower zone with blunting of the left costophrenic recess. An atelectatic band traversing in the right lower zone. Heart and Mediastinum: Heart size and shape are normal. No mediastinal widening or masses. No hilar or mediastinal lymphadenopathy. Bony Thorax: Bony thorax appears intact without fractures or deformities. Soft Tissues: Soft tissues overlying the chest wall are unremarkable. IMPRESSION: 1. Interval stable, homogeneous opacification of left lower zone with blunting of left costophrenic recess. Postinflammatory consolidative shadowing with mild pleural effusion. Clinical and lab correlation is advised. 2. Interval new, small atelectatic band traversing in the right lower zone.Comparing the previous x-ray dated 10/03/2024, interval stable left lower lobe consolidative shadowing and interval new, atelectatic bands right lower zone. Electronically signed by Codey Chavez 10-05-2024 07:34 AM PG Care Time/CCT Total # of Minutes Spent Total Time Spent with Patient: Total time spent is greater than 50% in coordination of care (as documented) at patient's floor/unit and/or counseling patient: Coding Level of Care Code 64128 SUB INP/OBS CARE 2/35MIN Diagnoses Pneumonia of left lower lobe due to infectious organism J18.9 Pneumonia type: due to unspecified organism JOSEPHINE on CPAP G47.33 Pleural effusion associated with pulmonary infection J18.9; J91.8 Acute cough R05.1 Cough type: acute Time Spent (min) 35
[2024-10-05 07:53] VITALS: BP 124/75; TEMP 98.2; O2SAT 92
[2024-10-05] MEDS: LACTATED RINGER'S 1,000 ML IV SCH (08:07)
[2024-10-05 10:25] VITALS: PULSE 77
--- NOTE | 2024-10-05 12:03 | Discharge Summary ---
Discharge Summary Date of Service October 05, 2024 Principal Dx & Hospital Course #1 = Principal Diagnosis (1) LLL pneumonia: (2) Sepsis: (3) Acute hyponatremia: (4) JOSEPHINE on CPAP: Plan This is a 49 y/o male with no significant medical history who presents to the ED with worsening symptoms of pneumonia and persistent fever. Pt was seen at urgent care for these symptoms and diagnosed with pneumonia, started on Augmentin/azithromycin on 09/30. However, he continues to have high fevers and persistent productive cough so came to the ED for evaluation. On presentation to to the ED, pt met sepsis criteria with tachycardia, persistent fever and labs showing leukopenia. Chest x-ray personally reviewed from today and compared to 10/01 x-ray - showed worsening of LLL consolidation. Pt was referred for admission for IV antibiotics, further evaluation. Initial lactate was normal. Noted to have new marked hyponatremia with sodium 124. Pt received 2L of IVF in the ED with improvement in tachycardia, BP remains stable. #LLL CAP #Multiloculated Parapneumonic Effusion #Sepsis / CAP - no pseudomonas/MRSA risk factors - CT chest ordered and personally reviewed by this provider shows mild to moderate multiloculated effusion, likely reason for lack of improvement - pulmonary consulted, feel patient is improving and stable for discharge, follow up in pulmonary clinic in 2 days - f/ blood cultures, sputum culture - Scheduled guaifenesin, prn Tessalon perles for cough - incentive spirometer, flutter valve for aggressive bronchopulmonary hygiene - 7 days of CAP coverage at discharge #Hypovolemic Hypoosmolar Hyponatremia #Dehydration #SIADH - Encourage oral intake - improvement - appears to be component of SIADH and prerenal etiology based on high osmoles in urine but low in blood but improvement with fluids #JOSEPHINE - CPAP per protocol ordered Notes For Next Care Provider This is a 49 y/o male with no significant medical history who presents to the ED with worsening symptoms of pneumonia and persistent fever. FAiled outpatient managgement, admitted to medicine. on medicine, noted to have multiloculated effusion, pulmonary consulted. Pulmonary felt patient improving, chest xray showing stable findings, pulmonary feel patient medically stable for discharge. Patient on room air, hemodynamically stable, feels better. From medicine and pulmonary teams perspective, patient medically stable for discharge home. To do: [ ] f/u in pulmonary clinic on 10/07, per pulmonary team already set up [ ] f/u legionella antigen Medication Changes From Visit -see below Admission HPI Per Admitting Provider This is a 49 y/o male with no significant medical history who presents to the ED with worsening symptoms of pneumonia and persistent fever. He reports that symptoms started six days ago on Friday night when he felt exhausted so went to bed early. On Friday, he went to work but felt off though no specific symptoms at the time, took temp that night which was 103F. He went to bed early that night and slept until 11 am next day. On Friday, he tried to push fluids and rest but still felt poorly. On , he started having chest burning and continued with fevers so he was seen in urgent care and tested for flu and strep which were negative. He reports being told that he may have Lyme disease so started on doxycycline, was ordered a chest x-ray. On Friday, he had the chest x-ray and was diagnosed with pneumonia. The doxycycline was discontinued, he started on azithromycin and ceftriaxone, which he reports he has been taking. Since starting the antibiotics, he feels like the chest congestion has loosened somewhat and he now has a cough that is intermittently productive. However, still with persistent fevers, malaise, intermittent SAMANIEGO. Cough is now constant and he is not sleeping due to symptoms. Denies significant dyspnea, runny nose. +sore throat from coughing, minimal sinus congestion. Has had some nausea and diarrhea since starting the antibiotics. Appetite is decreased, hasn't eaten much but trying to push fluids. History of JOSEPHINE for which he uses CPAP. Discharge Exam Gen: A&O 3 NAD HEENT: NCAT, EOMI, not icteric. External ears normal. No rhinorrhea. Moist mucous membranes. Neck: Supple, full range of motion, no observable masses, No meningeal sign. Lungs: left lower lobe rhonchi noted CV: RRR, no edema. Abdomen: Soft, nondistended, No rebound tenderness. MSK: No joint swelling, no redness. Skin: No rashes, petechiae, lesions. Normal color per patient. Neuro: Normal Gait, Grossly intact. Psych: Appropriate for situation. Updated Medication List Medication Instructions Recorded Confirmed Type loratadine 10 mg tablet 10 mg PO DAILY PRN Allergy Symptoms 10/03/24 10/03/24 History multivitamin 1 tab PO QAM 10/03/24 10/03/24 History Flutter Valve #1 ea 10/05/24 Rx Incentive Spirometer #1 ea 10/05/24 Rx amoxicillin 500 mg-potassium 1 tab PO BID 5 days #10 tabs 10/05/24 Rx clavulanate 125 mg tablet (Augmentin) azithromycin 500 mg tablet 500 mg PO DAILY 5 days #5 tabs 10/05/24 Rx benzonatate 100 mg capsule 100 mg PO TID PRN cough #30 caps 10/05/24 Rx guaifenesin 600 mg tablet, 600 mg PO Q12 #30 tabs 10/05/24 Rx extended release 12 hr (Mucinex) oxycodone 5 mg tablet 5 mg PO Q4 PRN pain 5 days #10 tabs 10/05/24 Rx Hospital Stay Data Consultations 10/03/24 17:30 ED Decision to Admit Stat 10/04/24 10:36 Consult Pulmonology Routine Diagnostic Imagining Performed 10/04/24 07:39 CT chest diagnostic w con Urgent Pending Results Patient Have Any Pending Studies at Discharge: No Discharge Instructions Given to Patient (Per Discharging Provider) 1. Please follow up with pulmonology and PCP. 2. Please take full course of abx. Total Time Total Time Spent Total Time Spent (In Minutes): I spent a total of 45 minutes in direct patient care, including [id number] time with the patient and/or family, reviewing medical records, ordering and reviewing diagnostic tests, and coordinating care with other healthcare providers. This time includes: history taking, physical examination, medical decision making, counseling, ECG interpretation, imaging interpretation, lab interpretation, orders, and education, excluding time spent in the performance of separately billed services.
== END 2024-10-05 12:35 | disposition home or self-care (01) | DRG 871 ==
LOC: ED 15:28 → 2N 17:39 → SUATTDRO 17:39 → 2N 19:54